=== PATIENT | female | born 2000 | race Caucasian/White ===

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

== ENCOUNTER 2022-02-10 17:08 | Emergency (ER) | payer MEDICAID ==
[2022-02-10] MEDS ORDERED: TORAdol 30 mg Injection IM ONE (17:29)
[2022-02-10 17:33] VITALS: BP 127/88; PULSE 106
--- NOTE | 2022-02-10 17:33 | ERPHSYRPT ---
- History of Present Illness Time Seen by Provider: 02/10/22 17:22 Source: patient Exam Limitations: no limitations Physician History: 21 years old right-handed dominant female presented in the ER with chief complaint of right hand pain. She does have history of right fifth metacarpal ORIF with hardware implant. 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 This afternoon started to have dull aching to sharp moderate intensity pain without any fall or trauma. It hurts with movements of fingers and better with being still. No swelling or focal tender points. Occurred: this afternoon Method of Injury: other Quality: sharpness Severity of Pain-Max: moderate Severity of Pain-Current: moderate Extremities Pain Location: hand: right Modifying Factors: Improves With: immobilization. 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[employer] - Vaccination Dates Date of 2cond Vaccination (if applicable): n/a - Review of Systems Constitutional: No Symptoms Ears, Nose, & Throat: No Symptoms Respiratory: No Symptoms Cardiac: No Symptoms Abdominal/Gastrointestinal: No Symptoms Musculoskeletal: Other Skin: No Symptoms Neurological: No Symptoms - Past Medical History Pertinent Past Medical History: No Neurological History: No Pertinent History ENT History: No Pertinent History Cardiac History: No Pertinent History Respiratory History: No Pertinent History Endocrine Medical History: No Pertinent History Musculoskeletal History: No Pertinent History GI Medical History: No Pertinent History History: No Pertinent History Psycho-Social History: No Pertinent History Female Reproductive Disorders: No Pertinent History 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: CHRONIC EAR INFECTIONS AN - Past Surgical History Past Surgical History: Yes Neuro Surgical History: No Pertinent History Cardiac: No Pertinent History Respiratory: No Pertinent History Gastrointestinal: No Pertinent History Genitourinary: No Pertinent History Musculoskeletal: Orthopedic Surgery Female Surgical History: No Pertinent History Other Surgical History: tubes in ears - Social History Smoking Status: Never smoker Exposure to second hand smoke: No Drug Use: none Patient Lives Alone: No - Physical Exam General Appearance: no apparent distress, alert Neck Exam: normal inspection, full range of motion Cardiovascular/Respiratory Exam: normal breath sounds, regular rate/rhythm Wrist Exam: normal inspection, non-tender, no evidence of injury, normal ROM Hand Exam: normal inspection, non-tender, no evidence of injury, normal ROM Neuro/Tendon Exam: normal sensation, normal motor functions, normal tendon functions Mental Status Exam: alert, oriented x 3, cooperative Skin Exam: normal color SpO2 Interpretation: normal SpO2: 95 O2 Delivery: Room Air - Progress Progress: pain not gone completely Progress Note: 02/10/22 17:31 She is given Toradol for symptomatic relief. She has no bony tenderness. I believe patient has overuse injury and ligamentous strain, recommended Tylenol ibuprofen, avoiding work involving repetitive movements at wrist/hands. Outpatient follow-up. Do not think needs imaging or any other work-up and is stable for discharge. Counseled pt/family regarding: diagnosis, need for follow-up - Departure Departure Disposition: Home Clinical Impression: Hand pain, right Condition: Stable Critical Care Time: No Referrals: JANE HAMEED [Primary Care Provider] - Follow Up with PCP/3 days ASHLEY - WILLARD HANEY NP [NON-STAFF PHY W/O PRIVILEGES] - Follow up/PCP as directed (In 2 days for reeval) Instructions: Hand Pain (DC) Additional Instructions: Take Tylenol/ibuprofen as needed. Follow-up with primary care for reevaluation. Return to ER for worsening pain. Avoid exertional work/repetitive movements at right hand/wrist. Prescriptions: Ibuprofen 600 mg PO [id number] PRN 10 Days #20 tablet PRN Reason: Pain
[2022-02-10 17:34] VITALS: O2SAT 95
[2022-02-10] MEDS ORDERED: TORAdol 30 mg Injection ONE (17:50)
== END 2022-02-10 18:01 | disposition home or self-care (01) ==
LOC: ED 17:08
DX: M79.641 Pain in right hand (principal)
CPT/HCPCS: 96372; 99282; J1885